=== PATIENT | male | born 1950 | race Caucasian/White ===

== ENCOUNTER → 2017-08-28 | Outpatient (CLI) | payer OTHER, MEDICARE | LOC: FIMAGING 10:56 → FLAB 10:56 → EDSTATUS 11:09 | PROVIDERS: ATTEND Physician Assistant | DX: R06.89 Other abnormalities of breathing (principal); J98.11 Atelectasis | CPT/HCPCS: 84402-90 ==

== ENCOUNTER → 2018-07-07 | Outpatient (CLI) | payer OTHER, MEDICARE | LOC: BHFA 09:00 | PROVIDERS: ATTEND Internal Medicine Interventional Cardiology | DX: R07.9 Chest pain, unspecified (principal) ==

== ENCOUNTER 2018-09-01 23:55 | Emergency (ER) | payer OTHER, MEDICARE ==
[2018-09-02] MEDS ORDERED: SILVER NITRATE APPLICATOR 1 APPL TP ONE (00:06)
[2018-09-02] MEDS ORDERED: LIDOCAINE HCL 4% TOPICAL SOLN 50ML ONE (00:07)
[2018-09-02] MEDS ORDERED: OXYMETAZOLINE 30 ML NASAL SPRAY ONE (00:07)
[2018-09-02] MEDS ORDERED: OXYMETAZOLINE 30 ML NASAL SPRAY NS ONE (00:19)
[2018-09-02] MEDS ORDERED: LIDOCAINE 4% 15 GM CREAM TP ONE (00:20)
--- NOTE | 2018-09-02 00:23 | EDPHY ---
H & P Stated Complaint: epistaxis for one hour Time Seen by Provider: 09/02/18 00:05 HPI/ROS: Chief Complaint: Nosebleed HPI: 68-year-old male had sudden onset of brisk bleeding from his left nostril 1 hr ago. Denies any trauma or foreign body. He is not on any blood thinning medications. No lightheadedness or fainting. Feels that the blood is running mostly at the front. He has swallowed a little bit. Mild nausea. No chest pain or shortness of breath. No headache. ROS: 10 systems were reviewed and were negative except those elements noted in the HPI. PMH: Coronary artery disease, hypertension, hyperlipidemia Social History: No smoking, no alcohol, no recreational drug use Family History: non-contributory Physical Exam: Gen: Awake, Alert, No Distress HEENT: Nose: Brisk bleeding from his left nostril anteriorly from an unspecified site Eyes: PERRLA, EOMI Mouth: Moist mucosa Neck: Supple, no JVD Ext: no edema, non-tender Skin: no rash Neuro: CN II-XII intact, Sensation grossly intact, Strength 5/5 in bilateral upper and lower extremities - Personal History Current Tetanus/Diphtheria Vaccine: No Current Tetanus Diphtheria and Acellular Pertussis (TDAP): No - Medical/Surgical History Hx Asthma: No Hx Chronic Respiratory Disease: No Hx Diabetes: No Hx Cardiac Disease: No Hx Renal Disease: No Hx Cirrhosis: No Hx Alcoholism: No Hx HIV/AIDS: No Hx Splenectomy or Spleen Trauma: No Other PMH: HTN, low testosterone, cholesterol, tendinitis, colitis, nerve damage , psoriasis, heart disease, sleep apnea, lipomas, osteoporosis - Social History Smoking Status: Never smoked Constitutional: Initial Vital Signs Temperature (C) 36.8 C 09/01/18 23:56 Heart Rate 84 09/01/18 23:56 Respiratory Rate 16 09/01/18 23:56 Blood Pressure 181/95 H 09/01/18 23:56 O2 Sat (%) 94 09/01/18 23:56 O2 Delivery Mode Room Air Allergies/Adverse Reactions: amlodipine Allergy (Verified 09/02/18 00:01) aspirin Allergy (Verified 09/02/18 00:01) NSAIDS (Non-Steroidal Anti-Inflamma Allergy (Verified 09/02/18 00:00) cholesterol medication Allergy (Uncoded 09/02/18 00:00) Home Medications: Medication Instructions Recorded ANDROGEL 1% 5gm pkt (RX) 05/15/13 Allergy Shots 05/15/13 Anucort-Hc 05/15/13 Colazal (RX) 05/15/13 Cortenema 05/15/13 Cpap 05/15/13 Hydrochlorothiazide 12.5 MG (RX) 05/15/13 Levothyroxine 05/15/13 Lisinopril 05/15/13 Restasis 05/15/13 Tiazac 300mg 05/15/13 Zetia 10 MG (RX) 05/15/13 Allergy Shots 09/02/18 Medical Decision Making Procedures: Procedure: Epistaxis control. After verbal consent was obtained, the patient was anesthetized with Ronald- Synephrine followed by 4% lidocaine atomized. The anterior epistaxis was identified. The patient was treated with 5.5 cm rhino rocket. Following the procedure the patient was re-examined and the bleeding was well controlled. The patient tolerated the procedure well. The procedure was performed by myself. ED Course/Re-evaluation: Re-evaluation after 1 hr of observation patient has had no further bleeding. He does have a history of cautery in the past. He does have an Ear Nose and Throat doctor. He will call them later today for follow-up, return for any bleeding. - Data Points Medications Given: Discontinued Medications Lidocaine (Anecream 4% Cream) 1 amie TP EDNOW ONE Stop: 09/02/18 00:21 Last Admin: 09/02/18 00:21 Dose: Not Given Oxymetazoline HCl (Afrin Nasal [place]) 2 sprays NS EDNOW ONE Stop: 09/02/18 00:20 Last Admin: 09/02/18 00:21 Dose: Not Given Departure - Departure Disposition: Home, Routine, Self-Care Clinical Impression: Acute anterior epistaxis Condition: Good Instructions: Nosebleed (ED) Additional Instructions: Leave the nasal balloon in place until your seen by Ear Nose and Throat doctor. Follow-up with a ears Nose and Throat doctor in 2-3 days for further evaluation. Return to the emergency department for the return of bleeding, worsening headache, fevers, or any other concerns. Referrals: Juli Vargas PA [Primary Care Provider] - As per Instructions Anjelica Giron MD [Medical Doctor] - As per Instructions
[2018-09-02 01:11] VITALS: BP 145/79
== END 2018-09-02 01:11 | disposition home or self-care (01) ==
PROC: 2Y41X5Z Packing of Nasal Region using Packing Material (ICD-10-PCS; principal; 2018-09-01)
DX: R04.0 Epistaxis (principal); I10 Essential (primary) hypertension; I25.10 Atherosclerotic heart disease of native coronary artery without angina pectoris; E78.5 Hyperlipidemia, unspecified

== ENCOUNTER 2018-09-11 18:00 | Observation (INO) | payer OTHER, MEDICARE ==
--- NOTE | 2018-09-11 18:16 | EDPHY ---
General - History Smoking Status: Never smoked Time Seen by Provider: 09/11/18 18:16 Narrative: CLINICAL IMPRESSION: Epistaxis, hypertension ASSESSMENT/PLAN: Patient is a 68-year-old male with a history of coronary artery disease, hypertension, hyperlipidemia, GERD and sleep apnea who presents to the Emergency Department with epistaxis. Patient is afebrile, not toxic appearing and in no acute distress. Patient with copious bleeding from the left nares, rhino rocket placed with continued bleeding down the posterior pharynx and right nares. An additional rhino rocket was placed on the right side and the patient continued to have bleeding in the posterior pharynx. ENT was consulted and evaluated this patient in the emergency department. Patient's left naris was packed with Merocel, please see Dr. Lunsford's dictation. The patient was given metoprolol with no change in his blood pressure, ultimately given labetalol. History and physical examination is consistent with left anterior epistaxis and elevated blood pressure. In light of recurrent epistaxis and elevated blood pressure the patient will be admitted for further observation and management for better blood pressure control. The patient remained stable in the emergency department and prior to transfer to the floor. ED PROCEDURES: A 5.5 rhino rocket was placed into the left nares with out difficulty. Patient continued to bleed from his right nares and posterior pharynx. A 4.5 rhino rocket was placed into the right nares with hemostasis anteriorly however the patient is still continuing to bleed down his posterior pharynx. Concerning for posterior epistaxis. ED COURSE: 1842: ENT paged. Case discussed with Dr. Lunsford, she will evaluate this patient in the emergency department. 1908: Patient accidentally pulled out his right rhino rocket, continuing to bleed. A new 4.5 rhino rocket was placed without difficulty. Patient's blood pressure is improving. 1921: Dr. Lunsford here evaluating the patient. BP going up, metoprolol ordered 1951: Case discussed with Dr. Lunsford, patient has been packed, he is still continuing to ooze. Patient has been given 5 of metoprolol with very little changed his blood pressure. Additional 5 of metoprolol ordered. 2004: Case discussed with hospitalist, patient will be admitted for blood pressure control and observation for epistaxis. Patient continues to have blood pressure is 190/100, discussed case with Dr. Eric, will order 10 of labetalol. CHIEF COMPLAINT: Bilateral epistaxis HPI: Patient is a 68-year-old male with a history of coronary artery disease, hypertension and hyperlipidemia who presents to the Emergency Department with sudden-onset bleeding from his bilateral nares. Patient with a history of epistaxis requiring both cautery and rhino rocket. Last seen 9 days prior for epistaxis from his left nares requiring rhino rocket. He reports his rhino rocket was in place for 3 days, he was subsequently seen by Dr. Giron with ENT. Upon removal of the rhino rocket a small area was cauterized. He denies any issues up until just prior to arrival. Patient reports approximately an hour prior to arrival he had a sudden onset bleeding from what he believes is both sides of his nares. He reports that is much less bleeding than he experienced 9 days prior however he was concerned as he could not get it to stop. He denies any trauma or foreign body. He does use a nasal CPAP machine. He is not on any aspirin or anticoagulation. Patient denies any headache, lightheadedness, chest pain or shortness of breath. Patient with a longstanding history of high blood pressure, reports difficulty controlling and adverse reaction to amlodipine with lower extremity swelling. ROS: Otherwise negative, please see HPI. PHYSICAL EXAM: General Appearance: Well-developed, well-appearing and in no acute distress. HEENT: Normocephalic, atraumatic. PERRLA, EOMI. External ears are normal. Bilateral nares with epistaxis, left greater than the right. Upon blowing his nose a large clot was removed and he began to copiously bleed from the left nares. I was unable to identify any discrete lesion and proceeded with rhino rocket. The septum is intact, no evidence of septal perforation or septal hematoma. Large turbinates noted bilaterally. The right nares has blood oozing from the inferior portion, no discrete plexus identified. Oropharynx with moderate amount of blood in the posterior pharynx. No cessation with bilateral rhino rocket placement. Respiratory: There are no retractions, lungs are clear to auscultation. Cardiac: Regular rate and rhythm, no murmurs or gallops. Gastrointestinal: Abdomen is soft, nontender, bowel sounds normal, no masses/ hernia, no rigidity, guarding or focal peritoneal findings. Skin: Warm, dry, no rashes. Neuro: Alert and oriented x3, Cranial nerves 2-12 grossly intact. No focal deficit. Psych: Normal mood, normal affect. No agitation. MEDICAL DECISION MAKING: Patient was seen by myself and Dr. Valiente. Diagnosis: Bilateral epistaxis. Summary: In reviewing patient's records he was seen and evaluated 9 days ago for similar , a 5.5 rhino rocket was placed with successful hemostasis. Decision to obtain medical records or history from someone other than the patient: No Review / Summarize previous medical records: Yes Discussed patient with another provider: Yes, Dr. Valiente, Dr. Lunsford Patient Progress: Stable, admit. (Mariel Lanza) Discussion: I evaluated and participated in the management of the patient. I also evaluated the patient independently. My co-signature indicates that I have reviewed this chart and I agree with the findings and plan of care as documented. My personal H&P findings include: 68-year-old male presents with an epistaxis. At the time my evaluation the patient has had his left naris packed. He has slight oozing from the right naris as well as significant posterior bleeding visible on examination of the oropharynx. Patient is not on anticoagulants. He does have a history of hypertension and is hypertensive in the emergency department. Right nares was packed. Patient's blood pressure continues to be elevated and he continues to have posterior oropharynx oozing on examination. Dr. Cline was consulted and evaluated the patient in the emergency department. Please see her notations. Patient continues to be hypertensive despite fentanyl for pain, Ativan for anxiety, and treatment with metoprolol. At this point, the patient will be admitted to the hospital for IV control of his hypertension as ENT is concerned that his epistaxis will not be able to be controlled without better blood pressure control. Course was discussed with Dr. Velia Eric. Patient was admitted to the [facility] floor for IV pushes of labetalol. (Roshni Valiente) - Objective Vital Signs: Initial Vital Signs Temperature (C) 37.3 C 09/11/18 18:03 Heart Rate 87 09/11/18 18:03 Respiratory Rate 18 09/11/18 18:03 Blood Pressure 189/89 H 09/11/18 18:03 O2 Sat (%) 94 09/11/18 18:03 O2 Delivery Mode Room Air Allergies/Adverse Reactions: amlodipine Allergy (Verified 09/11/18 18:01) aspirin Allergy (Verified 09/11/18 18:01) NSAIDS (Non-Steroidal Anti-Inflamma Allergy (Verified 09/11/18 18:01) cholesterol medication Allergy (Uncoded 09/02/18 00:00) Home Medications: Medication Instructions Recorded Ezetimibe [Zetia 10 MG (*)] 10 mg PO HS 05/15/13 Hydrocortisone Acetate [Anucort-Hc] 25 mg RC DAILY@02 05/15/13 Levothyroxine [Synthroid 75 mcg 75 mcg PO DAILY@23 05/15/13 (*)] Lisinopril [Zestril 40 mg (*)] 40 mg PO DAILY 05/15/13 cycloSPORINE 0.05% [Restasis Opht 1 drop EACHEYE BID 05/15/13 Drops(*)] Balsalazide Disodium [Colazal (*)] 4 each PO BID 09/11/18 Herbals/Supplements -Info Only 1 ea PO DAILY 09/11/18 Hydrocortisone 1 ea RC HS 09/11/18 Moxifloxacin/Ketorolac,Prednisolone 1 drop RTEYE DAILY 09/11/18 Opth Drop Omeprazole 20 mg PO HS 09/11/18 Polyvinyl Alcohol [Artificial 1 - 2 drops OP Q4H PRN 09/11/18 Tears] Cephalexin [Keflex (*)] 500 mg PO Q6HRS #36 cap 09/12/18 Furosemide [Lasix 20 MG (*)] 20 mg PO BID #60 tab 09/12/18 Nebivolol HCl [Bystolic 5 mg (*)] 5 mg PO DAILY #30 tab 09/12/18 Potassium Chloride 20 meq PO DAILY #30 tab.er.prt 09/12/18 Spironolactone [Aldactone] 50 mg PO DAILY tab 09/12/18 hydrALAZINE [Apresoline 10 mg (*)] 10 mg PO TID #90 tab 09/12/18 Medications Given: Discontinued Medications Acetaminophen (Tylenol) 650 mg PO Q4HRS PRN PRN Reason: Pain, Mild/Fever, Can Take PO Stop: 03/10/19 20:40 Last Admin: 09/12/18 11:37 Dose: 650 mg Balsalazide (Colazal) 3,000 mg PO BID [facility] Stop: 03/10/19 21:44 Last Admin: 09/12/18 10:03 Dose: 3,000 mg Cephalexin HCl (Keflex) 500 mg PO Q6HRS [facility] PRN Reason: Protocol Stop: 10/12/18 11:59 Last Admin: 09/12/18 17:42 Dose: 500 mg Cyclosporine (Restasis) 1 drop EACHEYE BID [facility] Stop: 03/10/19 21:44 Last Admin: 09/12/18 10:04 Dose: Not Given Ezetimibe (Zetia) 10 mg PO HS [facility] Stop: 03/10/19 21:44 Last Admin: 09/11/18 22:45 Dose: 10 mg Fentanyl (Sublimaze) 25 mcg IVP ONCE ONE Stop: 09/11/18 18:49 Last Admin: 09/11/18 18:57 Dose: 25 mcg Fentanyl (Sublimaze) 25 mcg IVP ONCE ONE Stop: 09/11/18 19:12 Last Admin: 09/11/18 19:18 Dose: 25 mcg Furosemide (Lasix) 20 mg PO Q8HRS [facility] Stop: 03/11/19 05:59 Last Admin: 09/12/18 14:53 Dose: 20 mg Hydralazine HCl (Apresoline) 10 mg IVP Q6HRS PRN PRN Reason: sbp >170 Stop: 03/10/19 20:40 Last Admin: 09/11/18 22:45 Dose: 10 mg Hydralazine HCl (Apresoline) 10 mg PO TID [facility] Stop: 03/11/19 15:59 Last Admin: 09/12/18 14:57 Dose: 10 mg Hydrocortisone (Colocort) 100 mg TX HS [facility] Stop: 03/10/19 21:44 Last Admin: 09/12/18 14:17 Dose: Not Given Hydrocortisone (Colocort) 100 mg TX HS [facility] Stop: 03/10/19 21:44 Last Admin: 09/11/18 22:44 Dose: 100 mg Hydrocortisone Acetate (Hemorrhoidal Hc) 25 mg TX DAILY@02 [facility] Stop: 03/11/19 01:59 Last Admin: 09/11/18 23:58 Dose: 25 mg Labetalol HCl (Trandate Injection) 10 mg IVP ONCE ONE Stop: 09/11/18 20:09 Last Admin: 09/11/18 20:13 Dose: 10 mg Levothyroxine Sodium (Synthroid) 75 mcg PO DAILY@23 [facility] Stop: 03/10/19 22:59 Last Admin: 09/11/18 22:45 Dose: 75 mcg Lisinopril (Zestril) 40 mg PO DAILY [facility] Stop: 03/11/19 08:59 Last Admin: 09/12/18 10:04 Dose: 40 mg Metoprolol Tartrate (Lopressor Injection) 5 mg IVP EDNOW ONE Stop: 09/11/18 19:23 Last Admin: 09/11/18 19:40 Dose: 5 mg Metoprolol Tartrate (Lopressor Injection) 5 mg IVP EDNOW ONE Stop: 09/11/18 19:57 Last Admin: 09/11/18 19:59 Dose: 5 mg Miscellaneous Medication (Moxifloxacin/Ketorolac,Prednisolone Opth Drop) 1 drop RTEYE DAILY [facility] Stop: 03/11/19 08:59 Last Admin: 09/12/18 10:05 Dose: 1 drop Nebivolol (Bystolic) 5 mg PO DAILY [facility] Stop: 03/11/19 08:59 Last Admin: 09/12/18 10:06 Dose: 5 mg Ondansetron HCl (Zofran Odt) 4 mg PO Q4HRS PRN PRN Reason: Nausea/Vomiting, Use 1st Stop: 03/10/19 20:40 Last Admin: 09/12/18 11:36 Dose: 4 mg Oxycodone HCl (Oxycodone Ir) 5 - 10 mg PO Q3HRS PRN PRN Reason: Pain, Severe Able to Take PO Stop: 09/21/18 20:40 Last Admin: 09/12/18 02:34 Dose: 5 mg Oxymetazoline HCl (Afrin Nasal [place]) 2 sprays [place] EDNOW ONE Stop: 09/11/18 18:19 Last Admin: 09/11/18 19:18 Dose: 2 sprays Potassium Chloride (Klor-Con) 30 meq PO ONCE ONE PRN Reason: Protocol Stop: 09/12/18 08:04 Last Admin: 09/12/18 10:02 Dose: 30 meq Spironolactone (Aldactone) 50 mg PO DAILY [facility] Stop: 03/11/19 08:59 Last Admin: 09/12/18 10:07 Dose: 50 mg Departure - Departure Disposition: [facility] Acute Clinical Impression: Epistaxis Hypertension Qualifiers: Hypertension type: unspecified Qualified Code(s): I10 - Essential (primary) hypertension Condition: Good
[2018-09-11] MEDS ORDERED: OXYMETAZOLINE 30 ML NASAL SPRAY EACHNARE ONE (18:18)
[2018-09-11] MEDS ORDERED: fentaNYL 100 MCG/2 ML INJ IVP ONE ×2 (18:48→19:11)
[2018-09-11] MEDS ORDERED: METOPROLOL TARTRATE 5 MG/5 ML INJ IVP ONE ×2 (19:22→19:56)
[2018-09-11] MEDS ORDERED: METOPROLOL TARTRATE 5 MG/5 ML INJ ONE (19:56)
[2018-09-11] MEDS ORDERED: LABETALOL HCL 5 MG/ML 20 ML MDV IVP ONE (20:08)
--- NOTE | 2018-09-11 20:33 | GCON ---
[f rep st] CONSULTATION DATE OF CONSULTATION: 09/11/2018 CHIEF COMPLAINT: Epistaxis. HISTORY OF PRESENT ILLNESS: This is a pleasant 68-year-old man who has a history of hypertension that has been uncontrolled over the past few months. He states typically it has been in the 160's systolic. He is on lisinopril, spironolactone and hydrochlorothiazide. He came today with some bleeding from the left side of his nose that started around 5. He was seen in the ER and a Rhino Rocket was placed on the left and then he continued to ooze on the right and so another Rhino Rocket was placed on the right. He continued to bleed posteriorly and so I was called for evaluation. On evaluation, his blood pressure was 189/89 and he had 2 Rhino Rockets with some significant oozing coming mostly anterior and a little bit dripping into the posterior oropharynx. He actually had epistaxis 9 days ago from the left side that required a Rhino Rocket. He was seen by an outside ENT, the Rhino Rocket was removed as well as cauterized. He denies any issues until now. He says this is less bleeding than he experienced prior, but he was concerned because he could not get it to stop. He has no history of trauma. He does use a CPAP machine at night. He is not on any anticoagulation. Denies any headache, lightheadedness, vision changes or shortness of breath. PAST MEDICAL HISTORY: See list. ALLERGIES: Amlodipine, aspirin, NSAIDs, and a cholesterol medication. SOCIAL HISTORY: Nonsmoker. REVIEW OF SYSTEMS: Positive for the above and negative for any other concerns. PHYSICAL EXAMINATION: He is awake, alert in no apparent distress. Cranial nerves 2-12 are grossly intact. He has [address] with some oozing coming from the left side. I evaluated the oropharynx and he does have a little bit of oozing coming posteriorly, but not as much as anteriorly. PROCEDURE: Secondary to the patient bleeding consistently on my evaluation, I elected to go ahead and start treating the nosebleed. He gave me verbal consent to do this. I initially deflated the right pack and pulled this out. I then suctioned out some blood and clot from the right side. There was no significant bleeding anteriorly on the right, but he did have some clot posteriorly. I then uninflated the left Rhino Rocket and removed this. He had some fairly brisk bleeding coming from what seemed like the midportion of the nose, though it was somewhat difficult secondary to a lot of clot there. I could see some cautery that had been done previously over what seemed to be the midportion of the upper septum on the left side, but it was pretty brisk and so it was difficult to tell. I suctioned out as much clot as possible and then I placed an 8 cm Merocel that had been coated with bacitracin and then Surgicel and he continued to ooze slightly around this more anteriorly but not posteriorly. I then placed another Merocel actually under the prior placed Merocel after pushing the first Merocel up more superiorly into the nose. After this was done, I placed some Surgicel around the edges of the Merocel medially along the septum. After the second Merocel was placed, this seemed to control the bleeding anteriorly and posteriorly. Exam of the oropharynx showed no significant active bleeding and it slowed significantly. On recheck of his blood pressure, it was 199/109. ASSESSMENT/PLAN: Epistaxis and hypertension. This is a patient who has significant epistaxis from the left. It is very hard to tell where this is coming from because it is very brisk bleeding. He is very hypertensive in the hospital and he has been given multiple doses of metoprolol with no significant change in his blood pressure. Secondary to this, I talked to the ER physician, Dr. Valiente, about control and management of his blood pressure. I do think that he will continue to ooze potentially around the packs if his blood pressure continues to stay this high. She feels it is necessary for admission to keep this controlled and I think this is a good idea especially since this is the second time he has bled. He will be admitted to the hospitalist service for control of blood pressure. He has the 2 Merocel packs on the left side with no significant active bleeding after re-evaluation about 15 minutes post packing. I will be available for evaluation if he starts bleeding further, but hopefully the packs with control of his blood pressure will take care of this. Please call if you need anything further. Please call my cell if you need anything, . /[id number]/MODL MTDD
[2018-09-11] MEDS ORDERED: TEMAZEPAM 15 MG CAP PO PRN (20:41)
[2018-09-11] MEDS ORDERED: LABETALOL HCL 5 MG/ML 20 ML MDV IVP PRN (20:41)
[2018-09-11] MEDS ORDERED: PROMETHAZINE HCL 25 MG/ML INJ IVP PRN (20:41)
[2018-09-11] MEDS ORDERED: ONDANSETRON 4 MG/2 ML VIAL IVP PRN (20:41)
[2018-09-11] MEDS ORDERED: HYDROCODONE/APAP 5/325 TAB PO PRN (20:41)
[2018-09-11] MEDS ORDERED: hydrALAZINE 20 MG/ML VIAL IVP PRN (20:41)
[2018-09-11] MEDS ORDERED: ACETAMINOPHEN 325 MG TAB PO PRN (20:41)
[2018-09-11] MEDS ORDERED: HYDROmorphONE/DILAUDID 1 MG/ML INJ IVP PRN (20:41)
[2018-09-11 20:57] LABS: PLATELET COUNT 267 10^3/uL (150-400)
--- NOTE | 2018-09-11 21:08 | PDGENHP ---
History and Physical - Chief Complaint nose bleed/bp elevated - History of Present Illness 68 yo M with PMH that includes HTN, recently poorly controlled, and recurrent epistaxis here for epistaxis. He was seen last week for epistaxis as well, treated with a rhino rocket and discharged to f/u with ENT. Upon f/u he underwent cauterization and removal of the rhino rocket and did well until today. He returned today with both nares bleeding, and BP quite elevated. Bilateral rhino rockets were placed however he continued to ooze around them and to have posterior bleeding and so ENT was consulted. In ER, Dr. Lunsford placed merocel and surgicel and this did ultimately control the bleeding. His BP remained elevated in ER despite administration of IV metoprolol and therefore it was felt he would need to be admitted for ongoing BP control as the risk of rebleeding was too high with BP as elevated as it has been. Patient notes that in terms of his BP, for the last several months his BP has been high and there have been multiple changes made to his BP meds. He had been on lisinopril, diltiazem and HCTZ in the past with initially good control of his BP. In the last several months his BP had been trending up and so the diltiazem was switched for norvasc. After some time on the norvasc he developed significant BLE edema and so this was switched back to diltiazem. On the diltiazem his swelling did not improve and it was felt that the diltiazem too might be causing his edema and so this was discontinued and he was started on aldactone. BP remained high so the aldactone dose was increased. He notes he has been having some WHITE and is less active than usual and also has more SOB when he is lying down at night. He has not had an echo or other evaluation for causes of edema besides medication changes. History Information - Allergies/Home Medication List Allergies/Adverse Reactions: amlodipine Allergy (Verified 09/11/18 18:01) aspirin Allergy (Verified 09/11/18 18:01) NSAIDS (Non-Steroidal Anti-Inflamma Allergy (Verified 09/11/18 18:01) cholesterol medication Allergy (Uncoded 09/02/18 00:00) Home Medications: Ezetimibe [Zetia 10 MG (*)] 10 mg PO HS 05/15/13 [Last Taken 09/10/18] Hydrochlorothiazide [HCTZ (*)] 12.5 mg PO DAILY 05/15/13 [Last Taken 09/11/18] Hydrocortisone Acetate [Anucort-Hc] 25 mg RC DAILY@02 05/15/13 [Last Taken 09/10] Levothyroxine [Synthroid 75 mcg (*)] 75 mcg PO DAILY@05/15/13 [Last Taken ] Lisinopril [Zestril 40 mg (*)] 40 mg PO DAILY 05/15/13 [Last Taken 09/11/18] cycloSPORINE 0.05% [Restasis Opht Drops(*)] 1 drop EACHEYE BID 05/15/13 [Last Taken 09/11/18] Balsalazide Disodium [Colazal (*)] 4 each PO BID 09/11/18 [Last Taken 09/11/18] Eye Drops Unknown Name 1 drop RTEYE DAILY 09/11/18 [Last Taken 09/11/18] Herbals/Supplements -Info Only 1 ea PO DAILY 09/11/18 [Last Taken 09/11/18] Hydrocortisone [Hydrocortisone] 1 ea RC HS 09/11/18 [Last Taken 09/10/18] Omeprazole 20 mg PO HS 09/11/18 [Last Taken 09/10/18] Polyvinyl Alcohol [Artificial Tears] 1 - 2 drops OP Q4H PRN 09/11/18 [Last Taken 09/11/18] Spironolactone [Aldactone 50 MG (RX)] 50 mg PO DAILY 09/11/18 [Last Taken ] I have personally reviewed and updated: family history, medical history, social history, surgical history - Past Medical History coronary artery disease, hypertension, hyperlipidemia Additional medical history: ulcerative colitis. hypothyroid. TANMAY on CPAP. osteopenia - Surgical History Additional surgical history: cataract surgery. knee surgery - Family History Positive for: non-pertinent - Social History Smoking Status: Never smoked Alcohol Use: Occasionally Drug Use: None Additional social history: single, girlfriend present at bedside Review of Systems Review of Systems: ROS: 10pt was reviewed & negative except for what was stated in HPI & below Physical Exam Physical Exam: Temp Pulse Resp BP Pulse Ox 36.7 C 65 16 177/94 H 93 09/11/18 19:00 09/11/18 20:49 09/11/18 20:49 09/11/18 20:49 09/11/18 20:49 Constitutional: appears nourished, uncomfortable Eyes: PERRL, anicteric sclera Ears, Nose, Mouth, Throat: hearing normal, other (rhinorockets, dried blood) Cardiovascular: regular rate and rhythym, no murmur, rub, or gallop, edema (3+ pitting to knees) Respiratory: no respiratory distress, no rales or rhonchi Gastrointestinal: normoactive bowel sounds, soft, non-tender abdomen Genitourinary: no bladder tenderness Skin: warm, normal color Musculoskeletal: full muscle strength Neurologic: AAOx3 Psychiatric: interacting appropriately, not anxious, not encephalopathic Lab Data & Imaging Review 09/11/18 20:45 09/11/18 20:45 WBC 9.49 10^3/uL (3.80-9.50) 09/11/18 20:45 RBC 4.35 10^6/uL (4.40-6.38) L 09/11/18 20:45 Hgb 12.1 g/dL (13.7-17.5) L 09/11/18 20:45 Hct 37.0 % (40.0-51.0) L 09/11/18 20:45 MCV 85.1 fL (81.5-99.8) 09/11/18 20:45 MCH 27.8 pg (27.9-34.1) L 09/11/18 20:45 MCHC 32.7 g/dL (32.4-36.7) 09/11/18 20:45 RDW 18.0 % (11.5-15.2) H 09/11/18 20:45 Plt Count 267 10^3/uL (150-400) 09/11/18 20:45 MPV 11.2 fL (8.7-11.7) 09/11/18 20:45 Neut % (Auto) 68.6 % (39.3-74.2) 09/11/18 20:45 Lymph % (Auto) 15.6 % (15.0-45.0) 09/11/18 20:45 [place] % (Auto) 9.6 % (4.5-13.0) 09/11/18 20:45 Eos % (Auto) 5.5 % (0.6-7.6) 09/11/18 20:45 Baso % (Auto) 0.4 % (0.3-1.7) 09/11/18 20:45 Nucleat RBC Rel Count 0.0 % (0.0-0.2) 09/11/18 20:45 Absolute Neuts (auto) 6.51 10^3/uL (1.70-6.50) H 09/11/18 20:45 Absolute Lymphs (auto) 1.48 10^3/uL (1.00-3.00) 09/11/18 20:45 Absolute Monos (auto) 0.91 10^3/uL (0.30-0.80) H 09/11/18 20:45 Absolute Eos (auto) 0.52 10^3/uL (0.03-0.40) H 09/11/18 20:45 Absolute Basos (auto) 0.04 10^3/uL (0.02-0.10) 09/11/18 20:45 Absolute Nucleated RBC 0.00 10^3/uL (0-0.01) 09/11/18 20:45 Immature Gran % 0.3 % (0.0-1.1) 09/11/18 20:45 Immature Gran # 0.03 10^3/uL (0.00-0.10) 09/11/18 20:45 Assessment & Plan Assessment: Epistaxis (Acute) Hypertension (Acute) 68 yo M with PMH of CAD, HTN TANMAY presenting with epistaxis, poorly controlled HTN and significant BLE edema # epistaxis: recurrent issue for this patient, last ER visit one week ago for same, he has rhinorocket as well as merocel/surgicel in place. In part driven by poorly controlled BP as next. ENT to follow and is available if bleeding recurs overnight. # HTN, poorly controlled: in the setting of multiple changes in BP meds recently and as an OP currently on hctz/aldactone and lisinopril as diltiazem and norvasc were felt to be causing edema. Given IV metoprolol in ER without much benefit, started IV hydralazine/labetalol. Will continue lisinopril and aldactone, however given significant LE edema will switch HCTZ for lasix, will add nebivolol in am. If BP can be controlled on oral meds, can dc in am likely to f/u w/PCP # Edema: quite significant BLE edema, currently to the knees but per patient previously was to the thighs, seems out of proportion to what would be expected as SE of diltiazem and not improving much despite discontinuing that. LFTs wnl, creatinine also wnl and patient denies changes in UOP. Will check echo to eval for contribution of CHF or pulmonary htn particularly given hx of tanmay. # TANMAY: will not be able to use cpap with rhinorockets per patient, as above # hypothyroid: recently checked and wnl # CAD: with recent c/o chest pain reported to cardiology and evaluated with ETT that was normal, echo as above # ulcerative colitis: continue home meds # observation status Patient new to my care. Old records reviewed and summarized as above. Care plan reviewed with ER doctor as above.
[2018-09-11] MEDS: oxyCODONE IR 5 MG TAB PO PRN (21:15)
[2018-09-11] MEDS ORDERED: Polyvinyl Alcohol [Artificial Tears] OP PRN (21:37)
[2018-09-11] MEDS ORDERED: EZETIMIBE 10 MG TAB PO SCH (21:45)
[2018-09-11] MEDS ORDERED: HYDROCORTISONE 100 MG/60 ML ENEMA BOTTLE PR SCH ×2 (21:45→22:30)
[2018-09-11] MEDS ORDERED: PROTOCOL POTASSIUM 1 DOSE MISC PRN (22:07)
[2018-09-11] MEDS ORDERED: PROTOCOL MAGNESIUM 1 DOSE IV PRN (22:07)
[2018-09-11] MEDS: BALSALAZIDE DISODIUM 750 MG CAP PO SCH (22:45)
[2018-09-11] MEDS: cycloSPORINE 0.05% 30 DROPERETTE/BOX EACHEYE SCH (22:55)
[2018-09-11] MEDS ORDERED: LEVOTHYROXINE 75 MCG TAB PO SCH (23:00)
[2018-09-12] MEDS ORDERED: HYDROCORTISONE ACETATE 25 MG SUPP PR SCH (02:00)
[2018-09-12] MEDS: oxyCODONE IR 5 MG TAB PO PRN (02:34)
[2018-09-12] MEDS: FUROSEMIDE 20 MG TAB PO SCH ×2 (05:11→14:53)
[2018-09-12] MEDS: ONDANSETRON DISINTEGRATING 4 MG TAB PO PRN ×2 (05:15→11:36)
[2018-09-12 05:24] LABS: PLATELET COUNT 240 10^3/uL (150-400)
[2018-09-12] MEDS ORDERED: POTASSIUM CL 10 MEQ TAB PO ONE (08:03)
[2018-09-12] MEDS ORDERED: [UNRECOGNIZED DRUG - OTHER] RTEYE SCH (09:00)
[2018-09-12] MEDS ORDERED: LISINOPRIL 40 MG TAB PO SCH (09:00)
[2018-09-12] MEDS ORDERED: MOXIFLOXACIN RTEYE SCH (09:00)
[2018-09-12] MEDS ORDERED: SPIRONOLACTONE 50 MG TAB PO SCH (09:00)
[2018-09-12] MEDS ORDERED: EYE RTEYE SCH (09:00)
[2018-09-12] MEDS ORDERED: NEBIVOLOL HCL 5 MG TAB PO SCH (09:00)
[2018-09-12] MEDS ORDERED: HYDROCHLOROTHIAZIDE 12.5 MG CAP PO SCH (09:00)
[2018-09-12] MEDS: BALSALAZIDE DISODIUM 750 MG CAP PO SCH (10:03)
[2018-09-12] MEDS: cycloSPORINE 0.05% 30 DROPERETTE/BOX EACHEYE SCH (10:04)
[2018-09-12] MEDS: CEPHALEXIN 500 MG CAP PO SCH ×2 (11:37→17:42)
--- NOTE | 2018-09-12 14:32 | HOSPPROG ---
Hospitalist Progress Note Assessment/Plan: 68 yo M with PMH of CAD, HTN TANMAY presenting with epistaxis, poorly controlled HTN and significant BLE edema. First encounter, chart reviewed. D/W Dr Cline and Dr Eric # epistaxis: -recurrent issue for this patient, -last ER visit one week ago for same, -he has rhinorocket as well as merocel/surgicel in place. -In part driven by poorly controlled BP -appreciate ENT consult -on keflex # HTN, poorly controlled: -in the setting of multiple changes in BP meds recently -as an OP currently on hctz/aldactone and lisinopril as diltiazem and norvasc were felt to be causing edema. -Given IV metoprolol in ER without much benefit, -started IV hydralazine/labetalol. -continue lisinopril and aldactone, -given significant LE edema will switch HCTZ for lasix, -nebivolol added -will add hydralizine # Edema: -quite significant BLE edema, -currently to the knees -LFTs wnl, creatinine also wnl -echo ordered to eval for contribution of CHF or pulmonary htn particularly given hx of tanmay. # TANMAY: -will not be able to use cpap with rhinorockets per patient, as above # hypothyroid: -recently checked and wnl # CAD: -with recent c/o chest pain reported to cardiology and evaluated with ETT that was normal, echo as above # ulcerative colitis: -continue home meds # Dispo -change to inpt status -need better BP control prior to going home -await ECHO report Subjective: Up at edge of bed. Feeling well. No pain currently. Objective: Vital Signs Temp Pulse Resp BP Pulse Ox 36.8 C 60 14 151/83 H 90 L 09/12/18 11:49 09/12/18 11:49 09/12/18 11:49 09/12/18 11:49 09/12/18 11:49 Laboratory Results 09/12/18 05:14 09/12/18 05:14 09/11/18 09/12/18 09/13/18 05:59 05:59 05:59 Intake Total 1200 Output Total 1350 650 Balance -150 -650 - Physical Exam Constitutional: no apparent distress, appears nourished, not in pain Eyes: PERRL, anicteric sclera, EOMI Ears, Nose, Mouth, Throat: hearing normal, ears appear normal, other (packing) Cardiovascular: regular rate and rhythym, edema, No JVD Respiratory: no respiratory distress, no rales or rhonchi, reduced air movement Gastrointestinal: normoactive bowel sounds, No tenderness, No ascites Skin: warm, normal color, No mottled Musculoskeletal: normal joint ROM, no joint effusions, generalized weakness Neurologic: AAOx3 Psychiatric: interacting appropriately, not anxious, not encephalopathic, thought process linear ICD10 Worksheet Patient Problems: Problems Problem Status Onset Epistaxis Acute Hypertension Acute
--- NOTE | 2018-09-12 15:28 | ASMTCMCOM ---
CM Note CM Note Notes: CM spoke with pt in the room. Pt lives alone in a house in [place]. Pt has support from his friend Constance who lives "not too far away". Pt was admitted for epistaxis - second time in a week - due to uncontrolled BP. Pt had echocardiogram earlier today, but no report has posted yet. No therapies ordered at this time. Pt is steady and independent. Anticipate pt will discharge independently and he is comfortable with this plan. CM to follow. D/C Plan: Independent Date Signed: 09/12/2018 03:27 PM Electronically Signed By:Kelin Almodovar RN
[2018-09-12] MEDS ORDERED: hydrALAZINE 10 MG TAB PO SCH (16:00)
[2018-09-12 17:40] VITALS: BP 169/96
--- NOTE | 2018-09-12 20:04 | PDDCSUM ---
Discharge Summary Discharge Summary: Dates of service 09/11-09/12/18 Consultations: ENT Procedures performed: none Hospital course by problem: 68 yo M with PMH of CAD, HTN TANMAY presenting with epistaxis, poorly controlled HTN and significant BLE edema # epistaxis: recurrent issue for this patient, last ER visit one week ago for same, he has rhinorocket as well as merocel/surgicel in place. BP better controlled and ENT notes they are ok with dc and f/u with patient as an OP # HTN, poorly controlled: in the setting of multiple changes in BP meds recently , BP very elevated on arrival, improved on current regimen though not yet at goal. Patient very eager to dc, and discussed that he will need to f/u with his PCP for ongoing management and he agrees to that. Dc on lisinopril 40, nebivolol 5, hydralazine 10 tid, spironolactone 50 and lasix 20 bid. BP has remained elevated on this regimen but concern that he has not reached a steady state and will certainly require more adjustment. Initially plan was to keep him overnight for ongoing monitoring, gut given his eagerness to dc, was discharged on this regimen with plan to monitor serial BP and f/u with PCP in coming days. # Edema: quite significant BLE edema, currently to the knees but per patient previously was to the thighs, echo ordered to r/u pulm htn or chf but has not been read at the time of discharge. Will need to f/u as an OP for results. # TANMAY: will not be able to use cpap with rhinorockets per patient, as above # hypothyroid: recently checked and wnl # CAD: with recent c/o chest pain reported to cardiology and evaluated with ETT that was normal, echo as above # ulcerative colitis: continue home meds DC home Items for f/u: --management of epistaxis --BP management--has remained elevated here, but may now be overmedicated or still under, recommending f/u with renal for ongoing bp mgmt --f/u of echo report > 35 min spent in dc more than half in counseling patient regarding fu care plan
[2018-09-12] MEDS ORDERED: PANTOPRAZOLE SODIUM 40 MG TAB PO SCH (21:00)
[2018-09-13] MEDS ORDERED: Herbals/Supplements -Info Only PO SCH (09:00)
--- NOTE | 2018-09-13 10:34 | ECHO ---
[email or web address] [address] [address] Main: [phone] Echocardiography Examination Transthoracic Name: AKBAR DAUGHERTY MR#: [id number] Study Date: 09/12/2018 Study Time: 11:05 AM Date of : 1950 Age: 68 year(s) Height: 180.3 cm (71 in.) Weight: 95.26 kg (210 lb.) BSA: 2.15 m2 Gender: Male Examination: Echo Contrast: Image Quality: Adequate Rhythm: Heart Rate: BP: 160 mmHg/86 mmHg Indication: BLE Edema, Hypertension Procedure Staff Referring Physician: [employer] Equipment Technician: Jenny Valadez [facility] Reading Physician: Otto June MD Requesting Provider: Ordering Physician: Velia Eric Indication: BLE Edema, Hypertension Measurements Chambers AV/MV Label Value Normal Value Label Value Normal Value LVOTd 2.2 cm (1.9cm - 2.1cm) AV PGmax 12 mmHg LVOT VTI 26.9 cm (18cm - 22cm) AV PGmean 8 mmHg LVDd, 2D 5.1 cm (4.2cm - 5.9cm) AV Vmax 1.69 m/s LVDs, 2D 3.6 cm (2.1cm - 4cm) JOS (VTI) 2.8 cm2 IVSd, 2D 1.1 cm (0.6cm - 1.1cm) MV E Vmax 0.9 m/s LVPWd, 2D 1.1 cm (0.6cm - 1cm) MV A Vmax 0.93 m/s LVEF, BP 58 % (55% - 70%) MV E/A 0.97 LVEF, 2D 57 % (54% - 74%) MV E/E' lateral 10.8 LVOT PGmean 3 mmHg MV E/E' septal 10.7 (0.45 - 1.25) LVOT Vmean 0.89 m/s MV DT 254 ms RVDd, 2D 3.9 cm (1.9cm - 3.8cm) MV E' septal 0.08 m/s LA Volume, BP 79 ml (18ml - 58ml) MV PHT 0.07 s LADs, 2D 4.1 cm (3cm - 4cm) MVA PHT 3.1 cm2 LAESV index, BP 36.7 ml/m2 MV E' lateral 0.08 m/s RA Area 21.3 cm2 MV E/E' mean 11.25 Additional Vessels MV PHT 71 ms Label Value Normal Value MV E' mean 0.08 m/s AoAsc 4 cm TV/PV AoRoot, 2D 3.3 cm (1.4cm - 2.6cm) Label Value Normal Value Patient: AKBAR DAUGHERTY Study Date: 09/12/2018 Page 1 of 3 11:05 AM RA Pressure 5 mmHg RVSP 31 mmHg TR Pmax 26 mmHg TR Vmax 2.54 m/s PV PGmax 4 mmHg PV Vmax, Caliper 1.05 m/s (0.6m/s - 0.9m/s) Conclusions Normal LV systolic function, measured LVEF 58%. Mild Biatrial enlargement. Mild mitral regurgitation. Mild tricuspid regurgitation, normal estimated RVSP. Dilated ascending aorta, 4.0 cm. Findings Left Ventricle: Left ventricle is normal in size. Normal global systolic left ventricular function. The ejection fraction, measured by Simpsons method, is 58 %. EF range is estimated at 55 % - 60 %. Left ventricle wall thickness is normal. There are no regional wall motion abnormalities. No LV hypertrophy. Right Ventricle: Normal size right ventricle. Right ventricular systolic function is normal. Left Atrium: The left atrium is mildly dilated. Right Atrium: The right atrium is borderline dilated. Mitral Valve: Mitral valve appears structurally normal. Mild mitral regurgitation. No mitral valve stenosis. Aortic Valve: Aortic leaflets are structurally normal. Trivial aortic regurgitation is present. There is no aortic stenosis. Aortic leaflets exhibit mild calcification. Tricuspid Valve: Tricuspid valve leaflets are structurally normal. Mild tricuspid regurgitation. No tricuspid valve stenosis. Right Ventricular systolic pressure is measured at 31 mmHg. Pulmonary artery pressure normal. Pulmonic Valve: Pulmonic leaflets are structurally normal. Mild pulmonic valve regurgitation is present. Aorta: The aortic root size in 2D measures 3.3 cm. The ascending aorta measures 4.0 cm. Aorta Measurements AoRoot, 2D is 3.3 cm. Pericardium: No pericardial effusion. No pleural effusion present. Exam Details Procedure Ordered: Echo Procedure Status: Routine study Image Quality: Adequate Facility Location: Cardiac Echo 1 (No Signature Object) Patient: AKBAR DAUGHERTY Study Date: 09/12/2018 Page 2 of 3 11:05 AM Patient: AKBAR DAUGHERTY Study Date: 09/12/2018 Page 3 of 3 11:05 AM [id number]
== END 2018-09-12 21:00 | disposition home or self-care (01) ==
LOC: F3E 21:25
PROVIDERS: ADMIT Internal Medicine; ATTEND Internal Medicine
PROC: 093K7ZZ Control Bleeding in Nasal Mucosa and Soft Tissue, Via Natural or Artificial Opening (ICD-10-PCS; principal; 2018-09-11)
DX: R04.0 Epistaxis (principal); I10 Essential (primary) hypertension; I25.10 Atherosclerotic heart disease of native coronary artery without angina pectoris; E78.5 Hyperlipidemia, unspecified; K21.9 Gastro-esophageal reflux disease without esophagitis
CPT/HCPCS: 30901; 93306; 96374; 96375; 99285; G0378; J0360; J3010

== ENCOUNTER → 2018-09-15 | Outpatient (CLI) | payer OTHER, MEDICARE | LOC: FIMAGING 13:47 ==